=== PATIENT | female | born 1950 | race Caucasian/White ===

== ENCOUNTER 2017-07-02 06:41 | Day surgery (SDC) | payer MEDICARE, OTHER ==
[~2017-07-02 06:41] MED LIST: DIPHENHYDRAMINE HCL 50 MG/ML VIAL ONE; FENTANYL CITRATE INJ/PF 100 MCG/2 ML AMPUL ONE; MIDAZOLAM 2 MG/2 ML INJ ONE; PROPOFOL INJ 200 MG/20 ML VIAL IV ONE
[2017-07-02] MEDS: POVIDONE-IODINE 5% OPH PREP SOLN 30 ML ONE ×2 (07:44)
[2017-07-02] MEDS: TETRACAINE HCL 0.5% OPH SOLN 2 ML ONE ×2 (07:44)
[2017-07-02] MEDS: BALANCED SALT IRRIG SOLN COMB2 15 ML BOTTLE ONE ×2 (07:49)
[2017-07-02] MEDS: THROMBIN (BOVINE) TOPICAL 5000 UNIT VIAL ONE ×2 (07:49)
[2017-07-02] MEDS: BUPIVACAINE HCL 0.75% INJ/PF (7.5 MG/1 ML) 10 ML SDV ONE ×2 (07:54)
[2017-07-02] MEDS: LIDOCAINE 2%/EPINEPHRINE INJ 20 ML VIAL ONE ×2 (07:54)
[2017-07-02] MEDS: NEO/POLYMYX B SULF/DEXAMETH OPH OINTMENT 3.5 GM ONE ×2 (08:41)
--- NOTE | 2017-07-02 09:49 | [facility] OPERATIVE REPORT E ---
[facility] Operative Report NAME: JENNIFER TAO AGE: 67Y DATE OF SURGERY: 07/02/2017 ROOM: PREOPERATIVE DIAGNOSIS: Bilateral upper eyelid dermatochalasis with visual field loss. POSTOPERATIVE DIAGNOSIS: Bilateral upper eyelid dermatochalasis with visual field loss. OPERATION: Bilateral upper eyelid blepharoplasty. SURGEON: REGINA ATKINSON M.D. ANESTHESIA: Local with MAC. INDICATIONS FOR SURGERY: The patient is a 67-year-old who complains of chronic irritation of her eyelids, constantly having to raise her eyebrows to keep her eyelids from drooping and elevating her lids to see better. PROCEDURE: The patient was brought to the operating room and tetracaine drops were placed in the eyes. Both eyes were sterilely prepped and draped under monitored anesthesia care. Using a marking pen, the upper eyelid crease was marked and 0.3 mm forceps were used to estimate the excess upper eyelid skin to be excised. This was marked in an elliptical fashion. Local anesthesia was administered. This consisted of 3 mL of 2% Xylocaine with epinephrine mixed with 0.75% Marcaine. This was administered in both upper lids and diffused with a Q-Tip. Attention was directed to the left upper lid where the elliptical piece of skin was removed. Hemostasis was obtained with bipolar cautery. The orbital septum was opened and retroseptal fat was grasped with a hemostat, cut and cauterized. Thrombin was placed on the incision. An identical procedure was performed on the right upper lid. Wound closure was accomplished with three interrupted 6-0 silk sutures equally spaced to the lid, taking a deep bite of fascia and wound closure was completed with running 6-0 nylon suture on both upper lids. Maxitrol ointment was placed on both upper lids. There was full closure of the lids and good hemostasis at the end of the surgery. The patient tolerated the procedure well and sent to the recovery room in good condition. DICTATING PHYSICIAN: REGINA ATKINSON M.D. [id number] PHY#: [id number] ID: [id number] JOB#: [id number] ACCT: [id number] cc:REGINA ATKINSON M.D. >
--- NOTE | 2017-07-02 10:14 | [facility] DISCHARGE SUMMARY E ---
[facility] Discharge Summary NAME: JENNIFER TAO AGE: 67Y ADMITTED: 07/02/2017 DISCHARGED: 07/02/2017 FINAL DIAGNOSIS: Bilateral upper eyelid dermatochalasis with visual field loss. HOSPITAL COURSE: The patient is a 67-year-old lady who underwent uneventful upper eyelid blepharoplasty on 07/02/2017. She will be discharged to home. She is instructed to resume preoperative medications. She was instructed to keep the head of her bed elevated 45 degrees for 24 hours, to use Maxitrol ointment twice a day for two days and then begin stratamed, to use a blepharoplasty ice pack 10 minutes out of every hour while awake for the first 24 hours, and to follow up in my office in one week. DICTATING PHYSICIAN: REGINA ATKINSON M.D. [id number] TOMASY#: [id number] ID: [id number] JOB#: [id number] ACCT: [id number] cc:REGINA ATKINSON M.D. > MTDD
== END 2017-07-02 09:30 | disposition home or self-care (01) ==
LOC: SC 06:41
PROVIDERS: ATTEND Ophthalmology
DX: H02.831 Dermatochalasis of right upper eyelid (principal); H02.834 Dermatochalasis of left upper eyelid; H53.8 Other visual disturbances; I10 Essential (primary) hypertension; E78.00 Pure hypercholesterolemia, unspecified; M19.90 Unspecified osteoarthritis, unspecified site; K21.9 Gastro-esophageal reflux disease without esophagitis; Z87.891 Personal history of nicotine dependence; Z79.899 Other long term (current) drug therapy; Z88.5 Allergy status to narcotic agent; Z79.82 Long term (current) use of aspirin
CPT/HCPCS: 15823; J2250; J3490 ×6; J1200; J3010; J2704; 103

== ENCOUNTER 2018-05-23 14:24 | Observation (INO) | payer MEDICARE, OTHER ==
[2018-05-23 15:09] LABS: ABSOLUTE EOSINOPHILS # (AUTO) 0.1 10^3/uL (0.0-0.6); ABSOLUTE LYMPHOCYTES (AUTO) 0.9 10^3/uL (0.5-4.7); ABSOLUTE MONOCYTES (AUTO) 0.2 10^3/uL (0.1-1.4); ABSOLUTE NEUT (AUTO) 5.2 10^3/uL (1.7-8.2); BASOPHILS % (AUTO) 0.4 % (0-2); EOSINOPHILS % (AUTO) 0.8 % (0-6); HEMATOCRIT 38.7 % (36.0-47.0); HEMOGLOBIN 13.3 g/dL (12.0-15.5); LYMPHOCYTES % (AUTO) 13.5 % (13-45); MEAN CORPUSCULAR HEMOGLOBIN 31.1 pg (27.0-33.4); MEAN CORPUSCULAR HGB CONC 34.4 g/dL (32.0-36.0); MEAN CORPUSCULAR VOLUME 90 fl (80-97); MONOCYTES % (AUTO) 3.4 % (3-13); PLATELET COUNT 195 10^3/uL (150-450); RED BLOOD COUNT 4.28 10^6/uL (3.72-5.28); RED CELL DISTRIBUTION WIDTH 13.1 % (11.5-14.0); SEGMENTED NEUTROPHILS % (AUTO) 81.9 % (42-78); TOTAL CELLS COUNTED % (AUTO) 100 %; WHITE BLOOD COUNT 6.3 10^3/uL (4.0-10.5)
[2018-05-23 15:18] LABS: INTERNATIONAL RATION (INR) 0.94
[2018-05-23 15:19] LABS: PARTIAL THROMBOPLASTIN TIME 31.5 SEC (23.5-35.8)
[2018-05-23 15:34] LABS: ALANINE AMINOTRANSFERASE 21 U/L (9-52); ALBUMIN 4.9 g/dL (3.5-5.0); ALKALINE PHOSPHATASE 54 U/L (38-126); ANION GAP 10 (5-19); ASPARTATE AMINO TRANSFERASE 26 U/L (14-36); BILIRUBIN,DIRECT 0.4 mg/dL (0.0-0.4); BILIRUBIN,TOTAL 0.4 mg/dL (0.2-1.3); BLOOD UREA NITROGEN 11 mg/dL (7-20); CALCIUM 10.2 mg/dL (8.4-10.2); CARBON DIOXIDE 28 mmol/L (22-30); CHLORIDE 102 mmol/L (98-107); CREATINE KINASE 54 U/L (30-135); GLUCOSE 130 mg/dL (75-110); POTASSIUM 3.7 mmol/L (3.6-5.0); SODIUM 140.2 mmol/L (137-145); TOTAL PROTEIN 8.1 g/dL (6.3-8.2)
[2018-05-23 15:46] LABS: CREATINE KINASE MB 0.26 ng/mL (<4.55)
--- NOTE | 2018-05-23 15:49 | RADIOLOGY REPORT (SQ) ---
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 TECHNIQUE: Axial images acquired through the brain without intravenous contrast. Images reviewed wi th bone, brain and subdural windows. Additional sagittal and coronal reconstructions were generated. Images stored on PACS. All CT scanners at this facility use dose modulation, iterative reconstruction, and/or weight based d osing when appropriate to reduce radiation dose to as low as reasonably achievable (ALARA). [facility]: Dose Right [facility]: CareDose [facility]: Dose Right [facility]: Teradose 4D [facility]: [employer] RADIATION DOSE: 1017 mGy cm LIMITATIONS: None. FINDINGS: VENTRICLES: Normal size and contour. CEREBRUM: No masses. No hemorrhage. No midline shift. No evidence for acute infarction. Normal gra y/white matter differentiation. No areas of low density in the white matter. CEREBELLUM: No masses. No hemorrhage. No alteration of density. No evidence for acute infarction. EXTRAAXIAL SPACES: No fluid collections. No masses. ORBITS AND GLOBE: No intra- or extraconal masses. Normal contour of globe without masses. CALVARIUM: No fracture. PARANASAL SINUSES: No fluid or mucosal thickening. SOFT TISSUES: No mass or hematoma. OTHER: No other significant finding. IMPRESSION: No acute intracranial pathology. EVIDENCE OF ACUTE STROKE: NO. COMMENT: Quality ID # [id number]: Final reports with documentation of one or more dose reduction techniques (e.g., Automated exposure control, adjustment of the mA and/or kV according to patient size, use of iterative reconstruction technique) TECHNICAL DOCUMENTATION: JOB ID: [id number] [employer]- All Rights Reserved Reading location - IP/workstation name: [email or web address]
[2018-05-23 15:50] LABS: TROPONIN I < 0.012 ng/mL
--- NOTE | 2018-05-23 16:10 | RADIOLOGY REPORT (SQ) ---
EXAM DESCRIPTION: CHEST 2 VIEWS COMPLETED DATE/TIME: 05/23/2018 4:01 pm REASON FOR STUDY: right eye blindness COMPARISON: Chest films 08/06/2010 CT chest 10/07/2012 EXAM PARAMETERS: NUMBER OF VIEWS: two views TECHNIQUE: Digital Frontal and Lateral radiographic views of the chest acquired. RADIATION DOSE: NA LIMITATIONS: none FINDINGS: LUNGS AND PLEURA: Lungs hyperinflated. No focal infiltrates. No pleural effusion or pneu mothorax. MEDIASTINUM AND HILAR STRUCTURES: No masses or contour abnormalities. HEART AND VASCULAR STRUCTURES: Heart normal size. No evidence for failure. BONES: No acute findings. HARDWARE: None in the chest. OTHER: No other significant finding. IMPRESSION: NO ACUTE RADIOGRAPHIC FINDING IN THE CHEST. TECHNICAL DOCUMENTATION: JOB ID: [id number] [employer]- All Rights Reserved Reading location - IP/workstation name: [email or web address]
--- NOTE | 2018-05-23 16:45 | ER Document Report ---
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 Patient states she was usual health until 3 days ago when she developed decreased vision in her right eye (almost complete loss of vision). She is denied any further muscle weakness or focal effects. She did have her pupil (right pupil only) dilated during her an exam when she was diagnosed by the pneumatic tester mechanic with a central retinal artery occlusion. She was referred to the emergency room for further risk stratification. TRAVEL OUTSIDE OF THE [place] IN LAST 30 DAYS: No - HPI Onset: Last week Onset/Duration: Gradual Quality of pain: No pain Severity: None Pain Level: Denies Associated symptoms: Other - Loss of sight in the right eye. denies: Chest pain, Fever, Shortness of breath Exacerbated by: Denies Relieved by: Denies Similar symptoms previously: No Recently seen / treated by doctor: Yes - Related Data Allergies/Adverse Reactions: codeine [Codeine] Adverse Reaction (Intermediate, Verified 05/23/18 14:28) Itch, Hyperactivity Past Medical History - General Information source: Patient - Social History Smoking Status: Former Smoker Cigarette use (# per day): No Chew tobacco use (# tins/day): No Frequency of alcohol use: None Drug Abuse: None Lives with: Family Family History: None Patient has suicidal ideation: No Patient has homicidal ideation: No - Past Medical History Cardiac Medical History: Reports: Hx Hypertension - NEW MED JUST ADDED Denies: Hx Coronary Artery Disease, Hx Heart Attack Pulmonary Medical History: Denies: Hx Asthma Neurological Medical History: Denies: Hx Cerebrovascular Accident, Hx Seizures Renal/ Medical History: Denies: Hx Peritoneal Dialysis GI Medical History: Denies: Hx Hepatitis, Hx Hiatal Hernia, Hx Ulcer Musculoskeletal Medical History: Reports Hx Arthritis Infectious Medical History: Denies: Hx Hepatitis Past Surgical History: Reports: Hx Hysterectomy. Denies: Hx Mastectomy, Hx Open Heart Surgery, Hx Pacemaker - Immunizations Hx Diphtheria, Pertussis, Tetanus Vaccination: Yes - 2002 Review of Systems - Review of Systems Constitutional: denies: Chills, Fever EENT: See HPI Cardiovascular: denies: Chest pain, Palpitations, Heart racing Respiratory: denies: Cough, Short of breath Gastrointestinal: denies: Abdomen distended, Abdominal pain, Vomiting Genitourinary: No symptoms reported Female Genitourinary: No symptoms reported Musculoskeletal: No symptoms reported Skin: No symptoms reported Hematologic/Lymphatic: No symptoms reported Neurological/Psychological: denies: Confusion, Gait changes, Paralysis, Numbness, Tingling Physical Exam - Vital signs Vitals: Resp Pulse Ox 18 98 05/23/18 14:44 05/23/18 14:44 Notes: Physical exam: GENERAL: Patient is alert and oriented x3, no acute distress. HEAD: Atraumatic, normocephalic. EYES: Patient's right pupil is still dilated. Left pupil is reactive to light ENT: TMs normal, nares patent, oropharynx clear without exudates. Moist mucous membranes. NECK: Normal range of motion, supple without obvious mass or JVD. LUNGS: Breath sounds clear to auscultation bilaterally and equal. No wheezes rales or rhonchi. HEART: Regular rate and rhythm without murmurs, rubs or gallops. ABDOMEN: Soft, normoactive bowel sounds. No tenderness to palpation. No guarding, no rebound. No masses appreciated. EXTREMITIES: Normal range of motion, no pitting or edema. no clubbing or cyanosis. NEUROLOGICAL: Cranial nerves II through XII grossly intact. Motor is 5/5, se nsory grossly intact, cerebellar (finger to nose) is good, visual beal intact. Normal speech, moving all extremities. PSYCH: Normal mood, normal affect. SKIN: Warm, Dry, normal turgor, no rashes or lesions noted. Course - Re-evaluation Re-evalutation: 05/23/18 21:06 Did speak to the pneumatic tester mechanic () who reiterated that there was no further treatment as far as the eye is concerned (other than stratify risk for further embolic events). Patient's NIH score is 0. There is no indication at this time for TPA (based upon the fact that this event happened 3 days ago). - Vital Signs Vital signs: Temp Pulse Resp BP Pulse Ox 60 14 109/78 95 05/23/18 14:55 05/23/18 19:00 05/23/18 17:02 05/23/18 19:00 - Laboratory Result Diagrams: 05/23/18 14:49 05/23/18 14:49 Laboratory results interpreted by me: 05/23/18 05/23/18 14:49 14:49 Seg Neutrophils % 81.9 H Glucose 130 H - Diagnostic Test Radiology reviewed: Image reviewed, Reports reviewed - T of the head shows nothing acute - EKG Interpretation by Me Rhythm: NSR - EKG shows normal sinus rhythm with a ventricular rate of 62, nonspecific T changes, no acute ST elevations or depressions Discharge - Discharge Clinical Impression: CVA-STATIONS SUPERINTENDENT occlusion Condition: Stable Disposition: ADMITTED INPATIENT Admitting Provider: Hospitalist - Dr. Cortes Unit Admitted: Telemetry
[2018-05-23] MEDS: ASPIRIN 81 MG TABLET, CHEWABLE PO SCH (17:58)
--- NOTE | 2018-05-23 18:19 | PDOC H&P ---
History of Present Illness Admission Date/PCP: 05/23/18 17:04 RANDY VILLAGRAN MD Patient complains of: BOV History of Present Illness: JENNIFER TAO is a 67 year old female, relatively healthy patient with no significant PMH aside from HTN who was sent to the ER from the ophthalmology clinic. Patient developed acute blurry vision on the right eye last Mario evening not associated with any other symptoms. She denies any weakness, numbness, headache or dizziness. Denies eye pain. No fever or chills. She was seen at the ophthalmology clinic where she had a dilated fundoscopy and was found to have CRAO hence was sent to the ER by Dr. Benson. Upon encounter, she is comfortable but still complains of blurry vision on the right. She had a dilated right pupil which is reactive to light. Bedside fundocsopy shows retinal pallor on the right with ill defined optic disc. Past Medical History Cardiac Medical History: Reports: Hypertension - NEW MED JUST ADDED Denies: Coronary Artery Disease, Myocardial Infarction Pulmonary Medical History: Denies: Asthma Neurological Medical History: Denies: Seizures GI Medical History: Denies: Hepatitis, Hiatal Hernia Musculoskeltal Medical History: Reports: Arthritis Hematology: Denies: Anemia, Sickle Cell Disease Past Surgical History Past Surgical History: Reports: Hysterectomy Denies: Amputation, Mastectomy, Pacemaker Social History Smoking Status: Former Smoker Hx Recreational Drug Use: No Family History Parental Family History Reviewed: Yes - [place] in both parents Children Family History Reviewed: No Sibling(s) Family History Reviewed.: No Medication/Allergy Home Medications: Alendronate Sodium [Fosamax 70 mg Tablet] 70 mg PO SANTOYO@1000 05/23/18 Gabapentin [Neurontin 100 mg Capsule] 100 mg PO QPM 05/23/18 Losartan Potassium [Cozaar 100 mg Tablet] 100 mg PO QAM 05/23/18 Meloxicam [Mobic] 15 mg PO QAM 05/23/18 Metoprolol Succinate [Toprol Xl 25 mg Tab.sr] 25 mg PO QPM 05/23/18 Mirabegron [Myrbetriq] 50 mg PO DAILY 05/23/18 Montelukast Sodium [Singulair 10 mg Tablet] 10 mg PO QHS 05/23/18 Omeprazole 40 mg PO Q6AM 05/23/18 Simvastatin [Zocor 20 mg Tablet] 20 mg PO QHS 05/23/18 Allergies/Adverse Reactions: codeine [Codeine] Adverse Reaction (Intermediate, Verified 05/23/18 14:28) Itch, Hyperactivity Review of Systems All systems: reviewed and no additional remarkable complaints except as stated - as mentioned in HPI Physical Exam Vital Signs: Temp Pulse Resp BP Pulse Ox 60 16 147/75 H 99 05/23/18 14:55 05/23/18 14:55 05/23/18 14:55 05/23/18 14:55 Intake & Output 05/22/18 05/23/18 05/24/18 06:59 06:59 06:59 Weight 11 lb 0.37 oz General appearance: PRESENT: no acute distress, well-developed, well-nourished Head exam: PRESENT: atraumatic, normocephalic Eye exam: PRESENT: conjunctiva pink, EOMI, other - dilated right pupil but reactive to light, bedside fundocsopy shows retinal pallor on the right with ill defined optic disc. ABSENT: scleral icterus Mouth exam: PRESENT: moist, tongue midline Neck exam: ABSENT: carotid bruit, JVD, lymphadenopathy, thyromegaly Respiratory exam: PRESENT: clear to auscultation junior. ABSENT: rales, rhonchi, wheezes Cardiovascular exam: PRESENT: RRR. ABSENT: diastolic murmur, rubs, systolic murmur Pulses: PRESENT: normal dorsalis pedis pul GI/Abdominal exam: PRESENT: normal bowel sounds, soft. ABSENT: distended, guard ing, mass, organolmegaly, rebound, tenderness Rectal exam: PRESENT: deferred Neurological exam: PRESENT: alert, awake, oriented to person, oriented to place, oriented to time, oriented to situation, CN II-XII grossly intact - BOV, right eye, dilated right eye. ABSENT: motor sensory deficit Results Laboratory Results: 05/23/18 14:49 05/23/18 14:49 05/23/18 05/23/18 05/23/18 14:49 14:49 14:49 WBC 6.3 RBC 4.28 Hgb 13.3 Hct 38.7 MCV 90 MCH 31.1 MCHC 34.4 RDW 13.1 Plt Count 195 Seg Neutrophils % 81.9 H Lymphocytes % 13.5 Monocytes % 3.4 Eosinophils % 0.8 Basophils % 0.4 Absolute Neutrophils 5.2 Absolute Lymphocytes 0.9 Absolute Monocytes 0.2 Absolute Eosinophils 0.1 Absolute Basophils 0.0 Sodium 140.2 Potassium 3.7 Chloride 102 Carbon Dioxide 28 Anion Gap 10 BUN 11 Creatinine 0.73 Est GFR ( Amer) > 60 Est GFR (Non-Af Amer) > 60 Glucose 130 H Calcium 10.2 Total Bilirubin 0.4 AST 26 ALT 21 Alkaline Phosphatase 54 C-Reactive Protein < 5.0 Total Protein 8.1 Albumin 4.9 05/23/18 05/23/18 14:49 14:49 Creatine Kinase 54 CK-MB (CK-2) 0.26 Troponin I < 0.012 Impressions: Chest X-Ray 05/23/18 15:38 IMPRESSION: NO ACUTE RADIOGRAPHIC FINDING IN THE CHEST. Head CT 05/23/18 15:38 IMPRESSION: No acute intracranial pathology. EVIDENCE OF ACUTE STROKE: NO. Assessment and Plan - Diagnosis (1) CRAO (central retinal artery occlusion) Qualifiers: Laterality: right Qualified Code(s): H34.11 - Central retinal artery occlusion, right eye Is this a current diagnosis for this admission?: Yes Plan: There is no definite standard of care for CRAO. This will be managed as a CVA. ER provider has discussed with Dr. Benson who has expressed there are no feasible treatment options for patient at this time as her symptoms started last Wednesday. Also contacted [facility] and discussed with Dr. Sharp who expressed they only usually do TPA for CRAO within 30-60 minutes. He storngly recommend a CVA work up including an echo as it is common for CRAO to be caridoembolic in nature. Will start patient on aspirin and statin. Will also check a CTA of the head and neck. (2) CVA (cerebral vascular accident) Is this a current diagnosis for this admission?: Yes Plan: As per number 1. (3) HTN (hypertension) Is this a current diagnosis for this admission?: Yes - Time Time Spent with patient: 25-34 minutes
[2018-05-23 18:31] LABS: CHOLESTEROL 175.92 mg/dL (0-200); TRIGLYCERIDES 97 mg/dL (<150)
--- NOTE | 2018-05-23 18:32 | ADVANCED CARE ---
- Diagnosis (1) CRAO (central retinal artery occlusion) Diagnosis Current: Yes (2) CVA (cerebral vascular accident) Diagnosis Current: Yes (3) HTN (hypertension) Diagnosis Current: Yes Resuscitation Status: Full Code Discussion: Discussed with patient, she expressed she benitez snot want director long term care mechanical ventilation but wants full resuscitation at this time including chest compressions and defibrillation and short term intubation if needed. She says her is her surrogate decision maker.
[2018-05-23 18:42] LABS: DIRECT LDL 90 mg/dL (<100)
--- NOTE | 2018-05-23 19:40 | EKG REPORT ---
SEVERITY:- ABNORMAL ECG - SINUS RHYTHM LEFT AXIS DEVIATION NONSPECIFIC T ABNORMALITIES, ANTERIOR LEADS : Confirmed by: Shimon Lopez MD 23-May-2018 19:38:57
[2018-05-23] MEDS ORDERED: ATORVASTATIN CALCIUM 40 MG TABLET PO SCH (22:00)
--- NOTE | 2018-05-23 22:59 | RADIOLOGY REPORT (SQ) ---
EXAM DESCRIPTION: CT NECK ANGIOGRAPHY WITHOUT THEN WITH IV CONTRAST COMPLETED DATE/TME: 05/23/2018 00:00 CLINICAL HISTORY: 67 years, Female, CRAO COMPARISON: None. TECHNIQUE: 381 Images stored on PACS. All CT scanners at this facility use dose modulation, iterative reconstruction, and/or weight based dosing when appropriate to reduce radiation dose to as low as reasonably achievable (ALARA). Axial images were obtained with coronal and sagittal MIPS reconstructions [facility]: Dose Right [facility]: CareDose [facility]: Dose Right [facility]: Teradose 4D [facility]: [employer] LIMITATIONS: None. FINDINGS: CTA neck: Origins of the great vessels appear patent, however there is significant venous interference limiting portions of the great vessels from the arch of the aorta. The vertebral arteries appear codominant in their cervical portions are widely patent. The bilateral common carotid arteries are widely patent. Mild atheromatous calcification at the origin of the internal carotid arteries bilaterally. Cervical portions are otherwise unremarkable. CTA brain: The vertebral basilar system is unremarkable. Negative for basilar tip aneurysm. The petrous and remaining intracranial portions of the internal carotid arteries are widely patent and unremarkable. No CTA evidence for severe stenosis, vascular encasement, or displacement. No CTA evidence for aneurysm or arteriovenous malformation. 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 IMPRESSION: No CTA evidence for measurable stenosis of the head or neck. Minimal atheromatous calcification at the origins of the internal carotid arteries of the neck bilaterally. TECHNICAL DOCUMENTATION: Quality ID # [id number]: Final reports with documentation of one or more dose reduction techniques (e.g., Automated exposure control, adjustment of the mA and/or kV according to patient size, use of iterative reconstruction technique) copyright 2011 [employer]- All Rights Reserved
[2018-05-24] MEDS ORDERED: FONDAPARINUX SODIUM INJ 2.5 MG/0.5 ML DISP.SYRIN SUBCUT SCH (08:00)
[2018-05-24] MEDS: ASPIRIN 81 MG TABLET, CHEWABLE PO SCH (10:26)
[2018-05-24] MEDS ORDERED: ACETAMINOPHEN 325 MG TABLET PO PRN (13:30)
--- NOTE | 2018-05-24 15:31 | PDOC DISCHARGE SUMMARY ---
General - Admit/Disc Date/PCP Admission Date/Primary Care Provider: 05/23/18 17:04 RANDY VILLAGRAN MD Discharge Date: 05/24/18 - Discharge Diagnosis (1) CRAO (central retinal artery occlusion) Is this a current diagnosis for this admission?: Yes Summary: We worked her up for an acute stroke and that was negative. She has since had a little bit of improvement in her vision but is still blurry on the right. She is already on a statin and will continue on an aspirin at home. (2) HTN (hypertension) Is this a current diagnosis for this admission?: Yes Summary: She will continue her home antihypertensive therapy. - Additional Information Resuscitation Status: Full Code Discharge Diet: Cardiac Discharge Activity: Activity As Tolerated, No Driving Home Medications: Alendronate Sodium [Fosamax 70 mg Tablet] 70 mg PO SANTOYO@1000 05/23/18 Gabapentin [Neurontin 100 mg Capsule] 100 mg PO QPM 05/23/18 Losartan Potassium [Cozaar 100 mg Tablet] 100 mg PO QAM 05/23/18 Meloxicam [Mobic] 15 mg PO QAM 05/23/18 Metoprolol Succinate [Toprol Xl 25 mg Tab.sr] 25 mg PO QPM 05/23/18 Mirabegron [Myrbetriq] 50 mg PO DAILY 05/23/18 Montelukast Sodium [Singulair 10 mg Tablet] 10 mg PO QHS 05/23/18 Omeprazole 40 mg PO Q6AM 05/23/18 Simvastatin [Zocor 20 mg Tablet] 20 mg PO QHS 05/23/18 Aspirin [Aspirin 81 mg Chewable Tablet] 81 mg PO DAILY tab.chew 05/24/18 History of Present Illness History of Present Illness: JENNIFER TAO is a 68 year old female, relatively healthy patient with no significant PMH aside from HTN who was sent to the ER from the ophthalmology clinic. Patient developed acute blurry vision on the right eye last Wednesday evening not associated with any other symptoms. She denies any weakness, numbness, headache or dizziness. Denies eye pain. No fever or chills. She was seen at the ophthalmology clinic where she had a dilated fundoscopy and was found to have CRAO hence was sent to the ER by Dr. Benson. Upon encounter, she is comfortable but still complains of blurry vision on the right. She had a dilated right pupil which is reactive to light. Bedside fundocsopy shows retinal pallor on the right with ill defined optic disc. Hospital Course Hospital Course: She was worked up for an acute stroke as the workup for central retinal artery occlusion is very similar. That workup was negative. She did have some plaque in the right carotid artery with the interpretation being she had 50-69% stenosis. Echocardiogram at this time is pending but she has had no events on telemetry and no history of arrhythmia. If there is anything abnormal we will call and notify her. She has had no other deficits and her vision has not worsened. She will resume her home medications with the addition of a daily aspirin. Her labs and exam were reassuring and she was discharged in good condition. Physical Exam Vital Signs: Temp Pulse Resp BP Pulse Ox 98.0 F 99 16 144/75 H 96 05/24/18 12:03 05/24/18 14:00 05/24/18 12:03 05/24/18 12:03 05/24/18 12:03 Intake & Output 05/23/18 05/24/18 05/25/18 06:59 06:59 06:59 Intake Total 240 Balance 240 Weight 59.9 kg General appearance: PRESENT: no acute distress, cooperative Eye exam: PRESENT: EOMI, PERRLA. ABSENT: conjunctival injection, nystagmus, scleral icterus Neck exam: PRESENT: full ROM. ABSENT: carotid bruit, JVD, lymphadenopathy, meningismus, tenderness, thyromegaly Respiratory exam: PRESENT: clear to auscultation junior, symmetrical, unlabored. ABSENT: accessory muscle use, crackles, prolonged expiratory phas, rhonchi, tachypnea, wheezes Cardiovascular exam: PRESENT: RRR, +S1, +S2 Pulses: PRESENT: normal carotid pulses Vascular exam: PRESENT: normal capillary refill GI/Abdominal exam: PRESENT: normal bowel sounds, soft. ABSENT: distended, guarding, rebound, tenderness Extremities exam: ABSENT: clubbing, pedal edema Musculoskeletal exam: PRESENT: ambulatory, normal inspection. ABSENT: deformity Neurological exam: PRESENT: alert, awake, oriented to person, oriented to place, oriented to time, oriented to situation. ABSENT: CN II-XII grossly intact - 2 through 12 intact with the exception of right lateral visual field deficits, where she describes blurry vision Psychiatric exam: PRESENT: appropriate affect, normal mood Skin exam: PRESENT: dry, warm Results Laboratory Results: 05/23/18 14:49 05/23/18 14:49 05/23/18 05/23/18 05/23/18 14:49 14:49 14:49 Sodium 140.2 Potassium 3.7 Chloride 102 Carbon Dioxide 28 Anion Gap 10 BUN 11 Creatinine 0.73 Est GFR ( Amer) > 60 Est GFR (Non-Af Amer) > 60 Glucose 130 H Calcium 10.2 Total Bilirubin 0.4 AST 26 ALT 21 Alkaline Phosphatase 54 C-Reactive Protein < 5.0 Total Protein 8.1 Albumin 4.9 Triglycerides 97 Cholesterol 175.92 LDL Cholesterol Direct 90 VLDL Cholesterol 19.0 HDL Cholesterol 64 05/23/18 05/23/18 14:49 14:49 Creatine Kinase 54 CK-MB (CK-2) 0.26 Troponin I < 0.012 Impressions: Head CTA 05/23/18 00:00 IMPRESSION: No CTA evidence for measurable stenosis of the head or neck. Minimal atheromatous calcification at the origins of the internal carotid arteries of the neck bilaterally. TECHNICAL DOCUMENTATION: Quality ID # 436: Final reports with documentation of one or more dose reduction techniques (e.g., Automated exposure control, adjustment of the mA and/or kV according to patient size, use of iterative reconstruction technique) copyright 2010 [employer]- All Rights Reserved Neck CTA 05/23/18 00:00 IMPRESSION: No CTA evidence for measurable stenosis of the head or neck. Minimal atheromatous calcification at the origins of the internal carotid arteries of the neck bilaterally. TECHNICAL DOCUMENTATION: Quality ID # 436: Final reports with documentation of one or more dose reduction techniques (e.g., Automated exposure control, adjustment of the mA and/or kV according to patient size, use of iterative reconstruction technique) copyright 2010 [employer]- All Rights Reserved Chest X-Ray 05/23/18 15:38 IMPRESSION: NO ACUTE RADIOGRAPHIC FINDING IN THE CHEST. Head CT 05/23/18 15:38 IMPRESSION: No acute intracranial pathology. EVIDENCE OF ACUTE STROKE: NO. Qualifiers - * PATIENT BEING DISCHARGED WITH ANY OF THE FOLLOWING DIAGNOSIS: No
[2018-05-24 15:51] VITALS: BP 138/79
--- NOTE | 2018-05-25 00:40 | XCELERA REPORT ---
[address] [address] Transthoracic Echocardiogram Report Name: JENNIFER TAO Age: 67 yrs Gender: Female : 1950 Patient Status: Inpatient Patient [address] Study Date: 05/23/2018 08:19 PM Height: 60 in Weight: 130 lb BSA: 1.6 m2 Procedure: A two-dimensional transthoracic echocardiogram with color flow Doppler was performed. Study Quality: Fair. Reason For Study: CVA History: CVA. Ordering Physician: MARGARITO CAMPOVERDE Performed By: Sarah Parker Interpretation Summary There is no obvious cardiac source of embolus noted on this transthoracic echocardiogram. Follow-up with a MARY is suggested if cardiac source is still suspected. The left ventricle is normal in size. There is normal left ventricular wall thickness. LV EF is 60% The left ventricular ejection fraction is within normal limits. Doppler measurements suggest impaired left ventricular relaxation, which is associated with grade I/IV or mild diastolic dysfunction The left ventricular wall motion is normal. There is no thrombus. The right ventricle is not well visualized secondary to technical limitations The right atrium is normal. The left atrial size is normal. No ASD or PFO. There is no evidence of mitral valve prolapse. There is no vegetation seen on the mitral valve. There is no mitral valve stenosis. There is a trace amount of mitral regurgitation There is no aortic valvular vegetation. There is no aortic valve stenosis There is no LVOT obstruction. There is a trace to mild amount of aortic regurgitation There is no tricuspid stenosis. There is a mild amount of tricuspid regurgitation There is mild pulmonary hypertension by echo RVSP is 34 mm of Hg , with RA mean of 10. There is no pulmonic valvular stenosis. There is a trace amount of pulmonic regurgitation The aortic root is normal size. There is no pericardial effusion. There is no obvious cardiac source of embolus noted on this transthoracic echocardiogram. Follow-up with a MARY is suggested if cardiac source is still suspected MMode/2D Measurements & Calculations RVDd: 2.1 cm LVIDd: 4.9 cm FS: 27.4 % Ao root diam: 2.7 cm IVSd: 0.81 cm LVIDs: 3.6 cm EDV(Teich): 114.6 ml Ao root area: 5.5 cm2 LVPWd: 0.91 cm ESV(Teich): 53.8 ml LA dimension: 3.6 cm EF(Teich): 53.1 % Doppler Measurements & Calculations MV E max antony: MV P1/2t max antony: Ao V2 max: AI max antony: 47.9 cm/sec 49.5 cm/sec 119.1 cm/sec 298.6 cm/sec MV A max antony: MV P1/2t: 73.2 msec Ao max PG: AI max P.6 cm/sec MVA(P1/2t): 3.0 cm2 5.7 mmHg 35.7 mmHg MV E/A: 0.73 MV dec slope: AI dec slope: 124.1 cm/sec2 197.9 cm/sec2 AI P1/2t: MV dec time: 705.1 msec 0.21 sec LV V1 max PG: PA V2 max: PI end-d antony: TR max antony: 3.3 mmHg 81.4 cm/sec 76.0 cm/sec 241.6 cm/sec LV V1 max: PA max P.7 mmHg TR max P.8 cm/sec 23.4 mmHg AV P1/2t-pr_phl: MV P1/2t-pr_phl: 705.1 msec 73.2 msec Left Ventricle The left ventricle is normal in size. There is normal left ventricular wall thickness. LV EF is 60%. The left ventricular ejection fraction is within normal limits. Doppler measurements suggest impaired left ventricular relaxation, which is associated with grade I/IV or mild diastolic dysfunction. The left ventricular wall motion is normal. There is no thrombus. There is no ventricular septal defect visualized. Right Ventricle The right ventricle is not well visualized secondary to technical limitations. Atria The right atrium is normal. The left atrial size is normal. No ASD or PFO. Mitral Valve There is no evidence of mitral valve prolapse. There is no vegetation seen on the mitral valve. There is no mitral valve stenosis. There is a trace amount of mitral regurgitation. Aortic Valve There is no aortic valvular vegetation. There is no aortic valve stenosis. There is no LVOT obstruction. There is a trace to mild amount of aortic regurgitation. Tricuspid Valve There is no tricuspid stenosis. There is a mild amount of tricuspid regurgitation. There is mild pulmonary hypertension by echo. RVSP is 34 mm of Hg , with RA mean of 10. Pulmonic Valve There is no pulmonic valvular stenosis. There is a trace amount of pulmonic regurgitation. Great Vessels The aortic root is normal size. Effusions There is no pericardial effusion. : MARGARITO CAMPOVERDE > Charisse Mora
== END 2018-05-24 17:50 | disposition home or self-care (01) ==
LOC: CANPREER → ER 14:24 → EH 17:04 → INTOOBSV 17:04 → 3W 22:05
PROVIDERS: ADMIT Internal Medicine; ATTEND Internal Medicine
DX: H34.11 Central retinal artery occlusion, right eye (principal); I10 Essential (primary) hypertension; I65.21 Occlusion and stenosis of right carotid artery; M19.90 Unspecified osteoarthritis, unspecified site; Z79.899 Other long term (current) drug therapy; Z79.1 Long term (current) use of non-steroidal anti-inflammatories (NSAID); Z79.82 Long term (current) use of aspirin; Z87.891 Personal history of nicotine dependence
CPT/HCPCS: 93005; 99285; 36415; 82553; 82550; 85025; 85652; 85610; 85730; 86140; 80053; 84484; 80061; 93306; 71046; 70450; 70496; 70498; 93010; A9270 ×3; G0378